=== PATIENT | female | born 1965 | race Caucasian/White ===

== ENCOUNTER 2016-08-28 01:39 | Emergency (ER) | payer OTHER ==
[~2016-08-28] VITALS: Ht 172.7 cm; Wt 116.5 kg
[~2016-08-28 01:39] MED LIST: BENICAR HCT1 TABLET PO; BENICAR5 MG PO; CLEOCIN300 MG PO; CLONAZEPAM1 MG PO; Depakote PO; FEMCON FE PO; KEFLEX500 MG PO; KELP1 EACH PO; LASIX PO; Levothroid,Synthroid PO; MIGRELIEF CAPL1 EACH PO; PERCOCET 10/1 TABLET PO; PYRIDIUM200 MG PO; SYNTHROID125 MCG PO; VERAPAMIL ER100 MG PO; VIIBRYD20 MG PO; VIIBRYD40 MG PO
[2016-08-28 02:07] LABS: MCH 30.2 PG (29.0-34.0); MCHC 35.1 G/DL (30.0-36.0); MCV 86.1 FL (83-99); MEAN PLAT.VOLUME 9.5 uM^3 (9.5-12.4); PLATELET COUNT 230 K/uL (156-360); RBC DIS.WIDTH-CV 12.2 % (11.8-14.6); RBC DIS.WIDTH-SD 37.3 % (39-53); RED BLOOD COUNT 4.53 M/uL (3.80-5.20); WHITE BLOOD COUNT 8.5 K/uL (4.1-10.2)
[2016-08-28 02:23] LABS: CHLORIDE 105 mEq/L (99-109); POTASSIUM 3.9 mEq/L (3.7-5.4); SODIUM 138 mEq/L (136-147)
[2016-08-28 02:24] LABS: GLUCOSE 114 mg/dL (70-99)
[2016-08-28 02:26] LABS: ANION GAP 9 MEQ/L (2-14)
[2016-08-28 02:28] LABS: GFR ESTIMATE (CALCULATED) > 59 mL/min/
[2016-08-28 02:29] LABS: UREA NITROGEN (BUN) 15 mg/dL (9-23)
[2016-08-28 02:30] LABS: TROP-I INTERPRETATION NEGATIVE; TROPONIN-I < 0.01 ng/mL (0.0-0.30)
[2016-08-28 03:10] LABS: D-DIMER ELISA 0.59 mg/L FEU (< 0.57)
[2016-08-28 05:11] VITALS: BP 148/96
== END 2016-08-28 05:12 | disposition left against medical advice (07) ==
LOC: EME 01:39
DX: R07.9 Chest pain, unspecified (principal); R79.89 Other specified abnormal findings of blood chemistry; J45.909 Unspecified asthma, uncomplicated; I10 Essential (primary) hypertension; K21.9 Gastro-esophageal reflux disease without esophagitis; E03.9 Hypothyroidism, unspecified
CPT/HCPCS: 71020; 71275; 80048; 84484; 85027; 85379; 93005; 99281; 99285

== ENCOUNTER 2018-02-27 09:33 | Emergency (ER) | payer OTHER ==
[~2018-02-27] VITALS: Ht 175.3 cm; Wt 69.1 kg
[2018-02-27 10:41] LABS: BASOPHIL (%) 0.7 % (0-1); EOSINOPHIL COUNT 0.1 K/uL (0-0.3); HEMATOCRIT 38.7 % (36.0-46.0); HEMOGLOBIN 13.7 G/DL (11.9-15.5); IMMATURE GRANULOCYTE (%) 0.7 % (0.0-0.7); LYMPHOCYTE (%) 31.8 % (15-42); LYMPHOCYTE COUNT 1.8 K/uL (1.0-2.8); MCH 30.6 PG (29.0-34.0); MCHC 35.4 G/DL (30.0-36.0); MCV 86.6 FL (83-99); MONOCYTE (%) 9.9 % (3-12); MONOCYTE COUNT 0.6 K/uL (0-0.8); NEUTROPHIL (%) 54.9 % (45-76); PLATELET COUNT 200 K/uL (156-360); RBC DIS.WIDTH-CV 12.1 % (11.8-14.6); RBC DIS.WIDTH-SD 38.5 % (39-53); RED BLOOD COUNT 4.47 M/uL (3.80-5.20); WHITE BLOOD COUNT 5.5 K/uL (4.1-10.2)
[2018-02-27 10:42] LABS: CHLORIDE 105 mEq/L (99-109); POTASSIUM 4.2 mEq/L (3.7-5.4); SODIUM 138 mEq/L (136-147)
[2018-02-27 10:44] LABS: GLUCOSE 125 mg/dL (70-99)
[2018-02-27 10:45] LABS: TOTAL PROTEIN 7.1 g/dL (6.4-8.3)
[2018-02-27 10:46] LABS: TOTAL BILIRUBIN 0.7 mg/dL (0.0-1.0)
[2018-02-27 10:48] LABS: ALKALINE PHOSPHATASE 73 IU/L (3-129); CREATININE 0.8 mg/dL (0.6-1.3); GFR ESTIMATE (CALCULATED) > 59 mL/min/
[2018-02-27 10:49] LABS: UREA NITROGEN (BUN) 9 mg/dL (9-23)
[2018-02-27 10:50] LABS: AST (GOT) 35 IU/L (2-34)
[2018-02-27 10:51] LABS: ALT (GPT) 51 IU/L (3-49); LIPASE 44 U/L (1.0-51.0)
[2018-02-27 11:34] LABS: APPEARANCE CLEAR ((CLEAR)); BILIRUBIN NEGATIVE; BLOOD SMALL; COLOR STRAW ((YELLOW)); GLUCOSE (STRIP) NEGATIVE; KETONES NEGATIVE; LEUKOCYTES NEGATIVE; NITRITE NEGATIVE; PROTEIN (STRIP) NEGATIVE; SPECIFIC GRAVITY 1.008 (1.000-1.030); UROBILINOGEN 0.2 MG/DL (0.2-1.0)
[2018-02-27 11:37] LABS: BACTERIA NONE SEEN /HPF; EPITHELIAL CELLS RARE /HPF; MUCUS TRACE /LPF; RED BLOOD CELLS 0-5 /HPF (0-5); WHITE BLOOD CELLS 0-5 /HPF (0-5)
[2018-02-27 14:31] LABS: C DIFF TOXIN NEGATIVE (NEGATIVE)
[2018-02-27] MEDS ORDERED: LEVSIN-SL0.125 MG SL (15:02)
[2018-02-27] MEDS ORDERED: ZOFRAN ODT4 MG PO (15:02)
[2018-02-27 15:23] VITALS: BP 105/53
== END 2018-02-27 15:24 | disposition home or self-care (01) ==
LOC: EME 09:33
PROVIDERS: Nurse Practitioner Family
DX: R10.84 Generalized abdominal pain (principal); R11.2 Nausea with vomiting, unspecified; Z86.19 Personal history of other infectious and parasitic diseases; F32.9 Major depressive disorder, single episode, unspecified; I10 Essential (primary) hypertension; J45.909 Unspecified asthma, uncomplicated; E03.9 Hypothyroidism, unspecified; K21.9 Gastro-esophageal reflux disease without esophagitis; Z88.5 Allergy status to narcotic agent; Z88.8 Allergy status to other drugs, medicaments and biological substances
CPT/HCPCS: 74177; 80053; 81003; 83605; 83690; 85025 91; 87493; 87506; 99281; 99284; J1885; J2405; J2765; J7030